=== PATIENT | female | born 1995 | race Two or more races ===

== ENCOUNTER 2021-05-16 13:52 | Outpatient (CLI) | payer OTHER | END 2021-05-16 13:53 | disposition home or self-care (01) | LOC: LAB 13:52 | PROVIDERS: ATTEND Specialist | DX: Z34.03 Encounter for supervision of normal first pregnancy, third trimester (principal); B96.29 Other Escherichia coli [E. coli] as the cause of diseases classified elsewhere ==

== ENCOUNTER 2021-05-18 14:00 | Inpatient (IN) | payer OTHER ==
[~2021-05-18] VITALS: Ht 152.4 cm; Wt 3.6 kg
[2021-05-21] MEDS ORDERED: PRENATAL TABLE1 EAC1 PO (21:22)
== END 2021-05-25 11:45 | disposition home or self-care (01) | DRG 788 ==
LOC: OB/GYN 05-21 21:17 → LDR 05-21 21:17 → OB/GYN 05-22 12:46
PROVIDERS: ADMIT Specialist; ATTEND Specialist
PROC: 3E0P7VZ Introduction of Hormone into Female Reproductive, Via Natural or Artificial Opening (ICD-10-PCS; 2021-05-21)
PROC: 3E033VJ Introduction of Other Hormone into Peripheral Vein, Percutaneous Approach (ICD-10-PCS; 2021-05-21)
PROC: 4A1HXFZ Monitoring of Products of Conception, Cardiac Rhythm, External Approach (ICD-10-PCS; 2021-05-21)
PROC: 10D00Z1 Extraction of Products of Conception, Low, Open Approach (ICD-10-PCS; principal; 2021-05-22 10:00)
DX: O65.8 Obstructed labor due to other maternal pelvic abnormalities (principal); O61.0 Failed medical induction of labor; O48.0 Post-term pregnancy; Z3A.40 40 weeks gestation of pregnancy; Z37.0 Single live birth